=== PATIENT | male | born 1985 | race Caucasian/White ===

== ENCOUNTER 2018-03-24 00:10 | Emergency (ER) | payer OTHER ==
[~2018-03-24] VITALS: Ht 177.8 cm; Wt 92.4 kg
[~2018-03-24 00:10] MED LIST: MULT-506 PO; NAPR1TAB9 PO
[2018-03-24 00:21] VITALS: TEMP 36.5; Ht 177.8 cm; Wt 92.4 kg
[2018-03-24] MEDS ORDERED: IBUPROFEN 600 MG TAB PO STA (01:05)
[2018-03-24 02:45] VITALS: BP 118/81; PULSE 84; O2SAT 98
--- NOTE | 2018-03-24 03:17 | EMERGENCY ROOM VISIT NOTE ---
History First contact with patient: 00:49 Chief Complaint: LEG PAIN,LEG INJURY Stated Complaint: FELL ON LEG AND PULLED MUSCLE History of Present Illness The patient is a 32 year old male who presents to the Emergency Room with complaints of left hamstring pain and discomfort after slipping and nearly doing the splits and falling when walking on the wet grass earlier today. He describes the pain as aching, ranging in severity currently 7 out of 10 worse with ambulation and better with rest. It does not radiate. No prior injury to the hamstring. Patient denies anterior thigh pain, femur pain, hip pain, knee pain, olvera pain, calf pain, numbness, tingling. Patient is able to ambulate but has pain to the hamstring region. Review of Systems A 6 system review of systems was completed with positives and pertinent negatives listed in the HPI. Past Medical/Surgical History None Social History Smoking Status: Never Smoker Drug Use: none Marital Status: single Housing Status: lives with family Occupation Status: employed Current/Historical Medications Scheduled Multivitamin (Multivitamin), 1 TAB PO DAILY Naproxen (Aleve), 220-440 MG PO PRN Physical Exam Vital Signs Date Time Temp Pulse Resp B/P (MAP) Pulse Ox O2 Delivery O2 Flow Rate FiO2 03/24/18 02:45 84 18 118/81 98 03/24/18 00:21 36.5 92 18 119/66 97 Room Air Physical Exam VITALS: Vitals are noted on the nurse's note and reviewed by myself. Vital signs stable. GENERAL: Pleasant male, in no acute distress, nondiaphoretic, well-developed well-nourished. SKIN: Capillary reflex less than 2 seconds. HEENT: Normocephalic. PERRLA. EOMI. Nares patent. Mucous membranes moist. Neck is supple without nuchal rigidity. HEART: Regular rate and rhythm without murmurs gallops or rubs. LUNGS: Clear to auscultation bilaterally without wheezes, rales or rhonchi. No retractions or accessory muscle use. MUSCULOSKELETAL: No gross musculoskeletal defects. No pedal edema. No calf tenderness. Pelvis stable. Left femur nontender to palpation. Left knee olvera foot nontender to palpation. Left hamstring tender to palpation without bruising or swelling easily reproducing symptoms. Patient has full extension and flexion of the leg. Increased pain with flexion. NEURO: Patient was alert and oriented to person place and time. Normal sensation to light and sharp touch. No focal neurological deficits. Medical Decision & Procedures Medications Administered Medications (Trade) Dose Ordered Sig/Tavia Route Start Time Stop Time Status Last Admin Dose Admin Ibuprofen (Motrin Tab) 600 mg NOW STAT PO 03/24/18 01:05 03/24/18 01:07 DC 03/24/18 01:11 600 MG ED Course Prior records reviewed and summarized above. Triage Nursing notes reviewed. Additional history obtained from the family. The patient's history was concerning for pain in the leg. Differential diagnosis: Etiologies such as strain, tear, DVT, musculoskeletal, fracture, joint effusion , trauma, as well as others were entertained.. Physical examination: The physical examination revealed no signs of infection. Neurovascularly intact. ER treatment provided: Motrin, crutches On reassessment the patient felt better. Diagnostics interpreted by me: Imaging studies: Ultrasound with no evidence of tear or rupture per stat radiology This appears to be consistent with left hamstring strain. Patient was neurovascularly and neurologically intact. Patient had no femur pain. He was offered an x-ray and declined. I felt was reasonable. He was ambulating on the leg. Patient was advised to stretch the area out and use crutches and instructed. Is advised to follow-up with orthopedics or family care in a few days if symptoms persist or here in the ER sooner for severe pain, numbness, tingling, worsening signs or symptoms or as needed. by the evaluation outlined above emergent etiologies such as septic joint, trauma, as well as others were deemed relatively unlikely. The pt informed about the findings as listed above. All questions were answered and pleased with the treatment. Return instructions were outlined and the patient was discharged in stable condition. Referral: The patient was referred back to their primary care physician or orthopedics for follow-up in 5-7 days for a recheck of the current condition. The chart was completed utilizing [employer] Speech voice recognition software. Grammatical errors, random word insertions, pronoun errors, and incomplete sentences are an occassional consequence of this system due to software limitations, ambient noise, and hardware issues. Any formal questions or concerns about the content, text, or information contained within the body of this dictation should be directly addressed to the physician family readiness support assistant for clarification. Medical Decision As above Medication Reconcilliation Current Medication List: was personally reviewed by me Blood Pressure Screening Patient's blood pressure: Normal blood pressure Impression Primary Impression: Strain of left hamstring Departure Information Dispostion Home / Self-Care Condition GOOD Referrals Thierno Miller D.O. Forms HOME CARE DOCUMENTATION FORM, IMPORTANT VISIT INFORMATION Patient Instructions Hamstring Stretch, My [facility] Additional Instructions Ibuprofen(Motrin, Advil) may be used for fever or pain. Use 600mg every six hours as needed. Take with food. Avoid using more than 2400mg in a 24 hour period. Do not use 2400mg per day for more than three consecutive days without physician direction. Prolonged inappropriate use can lead to stomach upset or ulcers. This medication can be taken if you need to drive, work, or perform activities which may be dangerous when taking narcotic pain medication. (AND/OR) Acetaminophen(Tylenol) may be used for fever or pain. Use 1000mg every six hours as needed. Avoid using more than 3000mg in a 24 hour period. This medication can be taken if you need to drive, work, or perform activities which may be dangerous when taking narcotic pain medication. Ice compresses for 20 minutes at a time four times daily for 2-3 days. Use the crutches as instructed. Rest and elevate your injury. Continue current medications. Return to the ER immediately for any numbness, tingling, severe pain, extreme swelling in the extremity or as needed. Call Orthopedics in 5-7 days to arrange follow up for your injury.
--- NOTE | 2018-03-24 06:29 | DIAGNOSTIC IMAGING REPORT ---
L EXTREMITY NONVASCULAR LIMITED HISTORY: 32 years-old Male left hamstring pain, ? rupture acute left leg pain with concern for hamstring pathology. COMPARISON: None available TECHNIQUE: Multiple real-time sonographic images of the left hamstring soft tissues were obtained assessing grayscale appearance and color flow FINDINGS/IMPRESSION: Musculature of the left hamstring appears unremarkable without focal fluid collection, tissue heterogeneity or other focal abnormality. The subcutaneous tissues are also within normal limits. The above report was generated using voice recognition software. It may contain grammatical, syntax or spelling errors. Electronically signed by: Urban Gusman M.D. 03/24/2018 6:27 AM Dictated Date/Time: 03/24/2018 6:25 AM
== END 2018-03-24 02:46 | disposition home or self-care (01) ==
LOC: C.EDB 00:12 → C.EDC 02:46
DX: S76.312A Strain of muscle, fascia and tendon of the posterior muscle group at thigh level, left thigh, initial encounter (principal); W01.0XXA Fall on same level from slipping, tripping and stumbling without subsequent striking against object, initial encounter

== ENCOUNTER → 2018-03-28 | Outpatient (CLI) | payer OTHER ==
--- NOTE | 2018-03-28 18:07 | DIAGNOSTIC IMAGING REPORT ---
L FEMUR 2 VIEWS ROUTINE CLINICAL HISTORY: 32 years-old Male presenting with S76.112S Quadriceps strain, left, sequela left. TECHNIQUE: Frontal and lateral views of the left femur were obtained. COMPARISON: None. FINDINGS: Left hip joint and left knee joint grossly congruent. No acute fracture or malalignment. No advanced degenerative change. No radiographic soft tissue abnormality. IMPRESSION: No acute osseous injury. Electronically signed by: Heri Hernandez M.D. 03/28/2018 6:05 PM Dictated Date/Time: 03/28/2018 6:05 PM
== END | disposition home or self-care (01) ==
LOC: C.RAD 16:55
PROVIDERS: ATTEND Family Medicine
DX: S76.112D Strain of left quadriceps muscle, fascia and tendon, subsequent encounter (principal); X58.XXXD Exposure to other specified factors, subsequent encounter